=== PATIENT | female | born 1985 | race Caucasian/White ===

== ENCOUNTER 2016-12-05 17:51 | Inpatient (IN) | payer MEDICARE, MEDICAID ==
[2016-12-05 18:50] LABS: BASO % 0.4 % (0.0-2.0); EOS # 0.2 K/uL (0.0-0.7); EOS % 1.8 % (0.0-4.0); HEMOGLOBIN 13.8 g/dL (12.0-16.0); LYMPH # 2.6 K/uL (1.0-4.3); LYMPH % 25.5 % (20.0-40.0); MEAN CELL VOLUME 93.9 fl (81.0-99.0); MEAN CORPUSCULAR HEMOGLOBIN 31.2 pg (27.0-31.0); MEAN CORPUSCULAR HGB CONC 33.2 g/dL (33.0-37.0); MEAN PLATELET VOLUME 10.1 fl (7.2-11.7); MONO # 0.5 K/uL (0.0-0.8); MONO % 4.9 % (0.0-10.0); NEUT # 6.8 K/uL (1.8-7.0); NEUT % 67.4 % (50.0-75.0); RBC 4.41 Mil/uL (3.80-5.20); RED CELL DISTRIBUTION WIDTH 13.3 % (11.5-14.5); WHITE BLOOD COUNT 10.1 K/uL (4.8-10.8)
[2016-12-05 19:05] LABS: ALB/GLOB RATIO 1.2 (1.0-2.1); ALBUMIN 4.2 g/dL (3.5-5.0); ALT/SGPT 31 U/L (9-52); AST/SGOT 18 U/L (14-36); BLOOD UREA NITROGEN 14 mg/dl (7-17); CALCIUM 9.6 mg/dL (8.4-10.2); GFR AFRICAN-AMERICAN > 60; GFR NON-AFRICAN AMERICAN > 60
--- NOTE | 2016-12-05 19:43 | ED PDOC ---
HPI: Chest Pain Time Seen by Provider: 12/05/16 18:08 Chief Complaint (Nursing): Chest Pain Chief Complaint (Provider): Chest Pain History Per: Patient History/Exam Limitations: no limitations Onset/Duration Of Symptoms: Hrs (x2) Current Symptoms Are (Timing): Still Present Additional Complaint(s): Gisselle Paz is a 31 year old female who presents to the emergency department with a complaint of intermittent central chest pain radiating to right shoulder without exasperation factor associated with mild dizziness and shortness of breath ongoing for 2 hours prior to arrival. Denied leg pain, leg edema, or prior incident. Patient reported she takes Percocet as needed for chronic pain management due to rheumatic conditions, on Plaquenil and that she cannot take aspirin due to Von Willebrand disease. Upon review of [place] directory of narcotics , patient last filled out Rx for Percocet on 11/04/16. PMD: Roberto Arguello MD Past Medical History Reviewed: Historical Data, Nursing Documentation, Vital Signs Vital Signs: Last Vital Signs Temp 98.0 F 12/06/16 12:47 Pulse 79 12/06/16 12:47 Resp 20 12/06/16 12:47 BP 100/59 L 12/06/16 12:47 Pulse Ox 96 12/06/16 12:47 - Medical History PMH: Anxiety, Arthritis, Asthma, Bronchitis, Depression, HTN, Migraine, Chronic Kidney Disease, Rheumatoid Arthritis, Seizures - Surgical History Surgical History: Cholecystectomy, Tonsillectomy - Family History Family History: States: Unknown Family Hx - Social History Current smoker - smoking cessation education provided: Yes Alcohol: Occasional Drugs: Denies - Immunization History Hx Tetanus Toxoid Vaccination: No - Home Medications Home Medications: Ambulatory Orders Medication Instructions Recorded Ondansetron [Zofran Tab] 4 mg PO Q8H PRN #10 tab 12/09/13 Acetaminophen/Oxycodone Hydr 5 mg PO PRN PRN 12/11/13 [Percocet 500 mg-7.5 mg] Pantoprazole [Protonix EC Tab] 40 mg PO BID 12/11/13 clonazePAM [Klonopin] 1 mg PO BID 12/11/13 Hydroxychloroquine Sulfate 200 mg PO BID 12/26/13 [Plaquenil] Albuterol HFA [Ventolin HFA 90 1 puff IH BID PRN #1 unit 02/26/14 mcg/actuation (8 g)] Acetaminophen/Butalbital/Caf 1 tab PO Q6 PRN 01/30/15 [Fioricet] Levetiracetam [Keppra] 500 mg PO BID 01/30/15 Zolpidem Tartrate [Ambien] 10 mg PO HS PRN 01/30/15 Carisoprodol [Soma] 250 mg PO TIDPC #14 tablet 06/18/15 - Allergies Allergies/Adverse Reactions: Allergies Allergy/AdvReac Type Severity Reaction Status Date / Time azithromycin [From Zithromax] Allergy Verified 06/17/15 19:28 ceftriaxone sodium Allergy Verified 06/17/15 19:28 [From Rocephin] ciprofloxacin [From Cipro] Allergy Verified 06/17/15 19:28 ciprofloxacin HCl Allergy Verified 06/17/15 19:28 [From Cipro] clarithromycin [From Biaxin] Allergy Verified 06/17/15 19:28 doxycycline Allergy Verified 06/17/15 19:28 ibuprofen Allergy Verified 06/17/15 19:28 levofloxacin [From Levaquin] Allergy Verified 06/17/15 19:28 morphine Allergy Verified 06/17/15 19:28 moxifloxacin HCl Allergy Verified 06/17/15 19:28 [From Avelox] Penicillins Allergy Verified 06/17/15 19:28 Sulfa (Sulfonamide Allergy Verified 06/17/15 19:28 Antibiotics) Review of Systems ROS Statement: Except As Marked, All Systems Reviewed And Found Negative Cardiovascular: Positive for: Chest Pain (central region) Respiratory: Positive for: Shortness of Breath Musculoskeletal: Positive for: Shoulder Pain (right without exacerbation factor) . Negative for: Leg Pain, Other (leg edema) Neurological: Positive for: Dizziness (mild) Physical Exam - Reviewed Nursing Documentation Reviewed: Yes Vital Signs Reviewed: Yes - Physical Exam Appears: Positive for: Well, Non-toxic, No Acute Distress Head Exam: Positive for: ATRAUMATIC, NORMAL INSPECTION, NORMOCEPHALIC Skin: Positive for: Normal Color Cardiovascular/Chest: Positive for: Regular Rate, Rhythm. Negative for: Chest Non Tender Respiratory: Positive for: Normal Breath Sounds. Negative for: Crackles, Rales , Rhonchi, Wheezing Extremity: Positive for: Normal ROM, Tenderness (mild to multiple joints). 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 -- Cardiac workup initiated due to patient's risk factors and autoimmune history. Time: 1899 --Patient signed out to Dr. Bonifacio Hogan. Pending bloodwork and Xray results. Scribe Attestation: Documented by Lexi Veliz, acting as a scribe for Mark Anthony Su III, DO. Provider Scribe Attestation: All medical record entries made by the Scribe were at my direction and personally dictated by me. I have reviewed the chart and agree that the record accurately reflects my personal performance of the history, physical exam, medical decision making, and the department course for this patient. I have also personally directed, reviewed, and agree with the discharge instructions and disposition. Disposition - Clinical Impression Clinical Impression: Chest pain - Patient ED Disposition Is Patient to be Admitted: Transfer of Care - Disposition Disposition: Transfer of Care Disposition Time: 19:00 Condition: FAIR Patient Signed Over To: Bonifacio Hogan
[2016-12-05 19:45] LABS: PARTIAL THROMBOPLASTIN TIME 36.2 Seconds (25.6-37.1); PROTHROMBIN TIME 10.4 Seconds (9.8-13.1)
--- NOTE | 2016-12-05 20:37 | ED PDOC ---
- Laboratory Results Result Diagrams: 12/05/16 18:44 12/05/16 18:44 - ECG O2 Sat by Pulse Oximetry: 97 (RA) Pulse Ox Interpretation: Normal Medical Decision Making Medical Decision Making: Time: 1899 --Patient was signed out to provider by Dr. Mark Anthony Su III. Pending bloodwork and Xray results. Time: 2214 --CTA FINDINGS: Limitations: Streak artifact - mild. Suboptimal timing of bolus/contrast opacification. Pulmonary arteries: No definite pulmonary embolism. Aorta: No aneurysm. No dissection. Lungs: No consolidation. Pleural space: No significant effusion. No pneumothorax. Heart: No cardiomegaly. No significant pericardial effusion. Bones/joints: No acute fracture. No dislocation. Soft tissues: Unremarkable. Lymph nodes: No pathologically enlarged lymph nodes. Gallbladder and bile ducts: Cholecystectomy. IMPRESSION: 1. No definite CT evidence of pulmonary embolism. 2. Incidental/non-acute findings are described above. Time: 2219 --Upon provider reevaluation, patient is still in pain. --Discussed case dr Alves (covering dr osei) who accepted patient be admitted under his care. pt cant get ASA because of von willebrands. Clinical Impression: Chest Pain Scribe Attestation: Documented by Lexi Veliz, acting as a scribe for Bonifacio Hogan MD. Provider Scribe Attestation: All medical record entries made by the Scribe were at my direction and personally dictated by me. I have reviewed the chart and agree that the record accurately reflects my personal performance of the history, physical exam, medical decision making, and the department course for this patient. I have also personally directed, reviewed, and agree with the discharge instructions and disposition. Disposition Doctor Will See Patient In The: Hospital Counseled Patient/Family Regarding: Studies Performed, Diagnosis - Clinical Impression Clinical Impression: Chest pain - POA Present On Arrival: None - Disposition Disposition: Admitted as In-Patient Disposition Time: 22:00 Condition: FAIR
[2016-12-05] MEDS ORDERED: Iodixanol 320 MG/ML 100 ML BOTTLE IV ONE (20:50)
[2016-12-05] MEDS ORDERED: Sodium Chloride 0.9% 50 ML IV ONE (20:51)
--- NOTE | 2016-12-05 22:15 | CT ---
EXAM: CT Angiography Chest With Intravenous Contrast CLINICAL HISTORY: 31 years old, female; Pain; Chest pain; Type not specified; Patient HX: See physician documents; Additional info: RO pe TECHNIQUE: Axial computed tomographic angiography images of the chest with intravenous contrast using pulmonary embolism protocol. All CT scans at this facility use one or more dose reduction techniques, viz.: automated exposure control; ma/kV adjustment per patient size (including targeted exams where dose is matched to indication; i.e. head); or iterative reconstruction technique. MIP reconstructed images were created and reviewed. Coronal and sagittal reformatted images were created and reviewed. CONTRAST: 90 mL of VISI 320 administered intravenously. COMPARISON: CT CHEST W/O IV CONT 07/05/2011 10:34:52 AM FINDINGS: Limitations: Streak artifact - mild. Suboptimal timing of bolus/contrast opacification. Pulmonary arteries: No definite pulmonary embolism. Aorta: No aneurysm. No dissection. Lungs: No consolidation. Pleural space: No significant effusion. No pneumothorax. Heart: No cardiomegaly. No significant pericardial effusion. Bones/joints: No acute fracture. No dislocation. Soft tissues: Unremarkable. Lymph nodes: No pathologically enlarged lymph nodes. Gallbladder and bile ducts: Cholecystectomy. IMPRESSION: 1. No definite CT evidence of pulmonary embolism. 2. Incidental/non-acute findings are described above.
[2016-12-05] MEDS ORDERED: Morphine 4 MG/ML VIAL ONE (22:33)
[2016-12-06] MEDS ORDERED: ACETAMINOPHEN PO PRN (00:17)
[2016-12-06] MEDS ORDERED: Albuterol HFA 90 mcg/actuation (8 g) IH PRN (00:17)
[2016-12-06] MEDS ORDERED: Apap-Butalbital-Caffeine 325-50-40mg Tab PO PRN (00:17)
[2016-12-06] MEDS ORDERED: OXYCODONE PO PRN (00:17)
[2016-12-06] MEDS ORDERED: LEVETIRACETAM 500 MG PO SCH (00:30)
[2016-12-06] MEDS: Oxycodone/Acetaminophen 5/325 mg Tab PO PRN ×3 (05:36→21:00)
[2016-12-06] MEDS: Pantoprazole 40 mg EC Tab PO SCH ×2 (08:24→17:25)
[2016-12-06] MEDS ORDERED: CARISOPRODOL 250 MG PO SCH (08:30)
[2016-12-06] MEDS ORDERED: Albuterol-Ipratrop 3 mg / 0.5 (3 ml) UD INH STA (08:52)
--- NOTE | 2016-12-06 10:32 | CARD ---
APPROVED REPORT EKG Measurement Heart [id number] <Conclusion> Normal sinus rhythm Normal ECG
--- NOTE | 2016-12-06 10:35 | RAD ---
HISTORY: COMPARISON: 01/30/2015. TECHNIQUE: Chest PA and lateral FINDINGS: LINES AND TUBES: None. LUNG AND PLEURA: The lungs are well inflated and clear. There are no pleural effusions or pneumothorax. HEART AND MEDIASTINUM: The heart is not enlarged. The hilar and mediastinal contours are within normal limits. SKELETAL STRUCTURES: The bony structures are within normal limits for the patient's age. VISUALIZED UPPER ABDOMEN: Normal. OTHER FINDINGS: None. IMPRESSION: No active pulmonary disease.
--- NOTE | 2016-12-06 13:20 | CP.PCM.HP ---
History of Present Illness - History of Present Illness History of Present Illness: 31 y/o F with PMHx that includes Asthma, RA, Migraine headaches, presents yesterday to ED c/o intermittent chest pain radiating to her right shoulder. Also patient states she has an epigastric pain associated with nausea and vomiting since yesterday. Denies SOB, palpitations, diarrheas, constipation, urinary symptoms. patient seen and examined with attending this morning. Patient still c/o chest pain radiating to her right shoulder, and also c/w epigastric pain associated to nausea, and reports approximately 3 vomits today. Present on Admission - Present on Admission Any Indicators Present on Admission: No History of DVT/PE: No History of Uncontrolled Diabetes: No Urinary Catheter: No Decubitus Ulcer Present: No Review of Systems - Review of Systems All systems: reviewed and no additional remarkable complaints except (as per HPI ) Past Patient History - Past Medical History & Family History Past Medical History?: Yes - Past Social History Smoking Status: Light Smoker < 10 Cigarettes Daily - CARDIAC Hx Cardiac Disorders: Yes Hx Hypertension: Yes - PULMONARY Hx Respiratory Disorders: Yes Hx Asthma: Yes Hx Bronchitis: Yes - NEUROLOGICAL Hx Neurological Disorder: Yes Hx Migraine: Yes Hx Seizures: Yes - HEENT Hx HEENT Problems: No - RENAL Hx Chronic Kidney Disease: Yes Other/Comment: CKD - ENDOCRINE/METABOLIC Hx Endocrine Disorders: Yes Hx Systemic Lupus Erythematosus: Yes - HEMATOLOGICAL/ONCOLOGICAL Hx Blood Disorders: Yes Hx AIDS: No Hx Human Immunodeficiency Virus (HIV): No Hx von Willebrand's Disease: Yes - INTEGUMENTARY Hx Dermatological Problems: No - MUSCULOSKELETAL/RHEUMATOLOGICAL Hx Musculoskeletal Disorders: Yes Hx Arthritis: Yes Hx Falls: No Hx Rheumatoid Arthritis: Yes - GASTROINTESTINAL Hx Gastrointestinal Disorders: Yes Hx Gastroesophageal Reflux: Yes Hx Irritable Bowel: Yes - GENITOURINARY/GYNECOLOGICAL Hx Genitourinary Disorders: Yes Hx Urinary Tract Infection: Yes Other/Comment: Hx : Nephrotic Syndrome - PSYCHIATRIC Hx Psychophysiologic Disorder: Yes Hx Anxiety: Yes Hx Depression: Yes Hx Substance Use: No - SURGICAL HISTORY Hx Surgeries: Yes Hx Cholecystectomy: Yes Hx Tonsillectomy: Yes - ANESTHESIA Hx Anesthesia: Yes Hx Anesthesia Reactions: No Hx Malignant Hyperthermia: No Meds Allergies/Adverse Reactions: Allergies Allergy/AdvReac Type Severity Reaction Status Date / Time azithromycin [From Zithromax] Allergy Verified 06/17/15 19:28 ceftriaxone sodium Allergy Verified 06/17/15 19:28 [From Rocephin] ciprofloxacin [From Cipro] Allergy Verified 06/17/15 19:28 ciprofloxacin HCl Allergy Verified 06/17/15 19:28 [From Cipro] clarithromycin [From Biaxin] Allergy Verified 06/17/15 19:28 doxycycline Allergy Verified 06/17/15 19:28 ibuprofen Allergy Verified 06/17/15 19:28 levofloxacin [From Levaquin] Allergy Verified 06/17/15 19:28 morphine Allergy Verified 06/17/15 19:28 moxifloxacin HCl Allergy Verified 06/17/15 19:28 [From Avelox] Penicillins Allergy Verified 06/17/15 19:28 Sulfa (Sulfonamide Allergy Verified 06/17/15 19:28 Antibiotics) Physical Exam - Constitutional Appears: No Acute Distress - ENT Exam ENT Exam: Mucous Membranes Moist - Respiratory Exam Respiratory Exam: Wheezes, NORMAL BREATHING PATTERN. absent: Rales, Rhonchi, Respiratory Distress - Cardiovascular Exam Cardiovascular Exam: REGULAR RHYTHM, +S1, +S2 - GI/Abdominal Exam GI & Abdominal Exam: Normal Bowel Sounds, Soft, Tenderness - Extremities Exam Extremities exam: Positive for: normal inspection. Negative for: calf tenderness, pedal edema - Neurological Exam Neurological exam: Alert, Oriented x3 - Skin Skin Exam: Dry, Intact, Normal Color Results - Vital Signs Recent Vital Signs: Last Vital Signs Temp 98.0 F 12/06/16 12:47 Pulse 79 12/06/16 12:47 Resp 20 12/06/16 12:47 BP 100/59 L 12/06/16 12:47 Pulse Ox 96 12/06/16 12:47 - Labs Result Diagrams: 12/05/16 18:44 12/05/16 18:44 Assessment & Plan - Assessment and Plan (Free Text) Assessment: 31 y/o F admitted in telemetry with chest and abdominal pain. Plan: Chest pain admit to tele first troponin I neg, f/u Troponin x 2 c/w pain control EKG showed no acute ST-T wave changes CXR showed no active disease Chest CT showed no evidence of PE Abdominal pain, nausea, and vomiting could be 2/2 percocet side effects; as per patient she has chronic pain for which she takes percocet at home -f/u Lipase -c/w zofran PRN -c/w PPI BID -f/u KUB x ray -GI consulted, f/u recommendations h/o Asthma -wheezing -Duoneb stat once then re-evaluate -c/w home albuterol PRN DVT prophylaxis SCDs for now ambulating - Date & Time Date: 12/06/16 Time: 09:30
[2016-12-06 13:49] LABS: LIPASE 36 U/L (23-300)
--- NOTE | 2016-12-06 14:35 | RAD ---
HISTORY: abdominal pain, N/V COMPARISON: 05/19/2013 FINDINGS: BOWEL: There is moderate amount of stool in the ascending colon. The bowel gas pattern is nonobstructive. There is no evidence of bowel dilatation. BONES: Normal. OTHER FINDINGS: None. IMPRESSION: Nonobstructive bowel-gas pattern.
[2016-12-06 20:15] VITALS: TEMP 98.2
[2016-12-07 00:17] VITALS: BP 123/73; PULSE 80; RESP 20; O2SAT 95
[2016-12-07] MEDS: Oxycodone/Acetaminophen 5/325 mg Tab PO SCH ×2 (00:33→01:00)
== END 2016-12-07 02:50 | disposition left against medical advice (07) | DRG 313 ==
LOC: H.ER 17:51 → H.ERHOLD 21:24 → H.TEL 12-06 00:12 → OBSVTOIN 12-06 11:24
PROVIDERS: ADMIT Family Medicine; ATTEND Family Medicine
DX: R07.9 Chest pain, unspecified (principal); D68.0 Von Willebrand disease; M32.9 Systemic lupus erythematosus, unspecified; I12.9 Hypertensive chronic kidney disease with stage 1 through stage 4 chronic kidney disease, or unspecified chronic kidney disease; N18.9 Chronic kidney disease, unspecified; K21.9 Gastro-esophageal reflux disease without esophagitis; G89.29 Other chronic pain; R10.9 Unspecified abdominal pain; K58.9 Irritable bowel syndrome, unspecified; M06.9 Rheumatoid arthritis, unspecified; J45.909 Unspecified asthma, uncomplicated; G43.909 Migraine, unspecified, not intractable, without status migrainosus; F17.210 Nicotine dependence, cigarettes, uncomplicated; Z88.1 Allergy status to other antibiotic agents; Z87.440 Personal history of urinary (tract) infections; Z87.441 Personal history of nephrotic syndrome; Z90.49 Acquired absence of other specified parts of digestive tract

== ENCOUNTER 2017-09-06 20:11 | Emergency (ER) | payer MEDICARE, MEDICAID ==
[2017-09-06 20:42] VITALS: BP 133/80; PULSE 98; RESP 16; TEMP 98; O2SAT 100
--- NOTE | 2017-09-06 21:08 | ED PDOC ---
HPI: General Adult Time Seen by Provider: 09/06/17 20:52 Chief Complaint (Nursing): Medical Clearance Chief Complaint (Provider): Repeat blood work History Per: Patient History/Exam Limitations: no limitations Additional Complaint(s): 32 year old female presents to the emergency department for repeat blood work for BETA-HCG after she was seen here two days ago. Patient found out that morning she was with an at home test associated with abdominal pain and spotting. Symptoms resolved. Denies nausea. vomiting, abdominal pain, vaginal bleeding, or fever. Patients only care was here at this facility as she just found out she was . Last menstrual: July 26 2017. PMD: Dr. Jos OAKES Past Medical History Reviewed: Historical Data, Nursing Documentation, Vital Signs Vital Signs: Last Vital Signs Temp 98 F 09/06/17 20:40 Pulse 98 H 09/06/17 20:40 Resp 16 09/06/17 20:40 BP 133/80 09/06/17 20:40 Pulse Ox 100 09/06/17 22:31 - Medical History PMH: Anxiety, Arthritis, Asthma, Bronchitis, HTN, Migraine, Chronic Kidney Disease, Rheumatoid Arthritis, Seizures Denies: Depression, HIV Other PMH: Lupus idiopathic thrombocytopenic purpura (ITP) nephrotic syndrome, GBS - Surgical History Surgical History: Cholecystectomy, Tonsillectomy Other surgeries: Fatty tumor removal of the neck (benign) - Family History Family History: States: Unknown Family Hx - Social History Current smoker - smoking cessation education provided: Yes (3-4 cigarettes daily ) Alcohol: Social Drugs: Denies - Immunization History Hx Tetanus Toxoid Vaccination: No - Home Medications Home Medications: Ambulatory Orders Medication Instructions Recorded Ondansetron [Zofran Tab] 4 mg PO Q8H PRN #10 tab 12/09/13 Acetaminophen/Oxycodone Hydr 5 mg PO PRN PRN 12/11/13 [Percocet 500 mg-7.5 mg] Pantoprazole [Protonix EC Tab] 40 mg PO BID 12/11/13 clonazePAM [Klonopin] 1 mg PO BID 12/11/13 Hydroxychloroquine Sulfate 200 mg PO BID 12/26/13 [Plaquenil] Albuterol HFA [Ventolin HFA 90 1 puff IH BID PRN #1 unit 02/26/14 mcg/actuation (8 g)] Acetaminophen/Butalbital/Caf 1 tab PO Q6 PRN 01/30/15 [Fioricet] Levetiracetam [Keppra] 500 mg PO BID 01/30/15 Zolpidem Tartrate [Ambien] 10 mg PO HS PRN 01/30/15 Carisoprodol [Soma] 250 mg PO TIDPC #14 tablet 06/18/15 Ondansetron ODT [Zofran ODT] 4 mg PO Q6 PRN #12 tab 09/06/17 - Allergies Allergies/Adverse Reactions: Allergies Allergy/AdvReac Type Severity Reaction Status Date / Time azithromycin [From Zithromax] Allergy Verified 06/17/15 19:28 ceftriaxone sodium Allergy Verified 06/17/15 19:28 [From Rocephin] ciprofloxacin [From Cipro] Allergy Verified 06/17/15 19:28 ciprofloxacin HCl Allergy Verified 06/17/15 19:28 [From Cipro] clarithromycin [From Biaxin] Allergy Verified 06/17/15 19:28 doxycycline Allergy Verified 06/17/15 19:28 ibuprofen Allergy Verified 06/17/15 19:28 levofloxacin [From Levaquin] Allergy Verified 06/17/15 19:28 morphine Allergy Verified 06/17/15 19:28 moxifloxacin HCl Allergy Verified 06/17/15 19:28 [From Avelox] Penicillins Allergy Verified 06/17/15 19:28 Sulfa (Sulfonamide Allergy Verified 06/17/15 19:28 Antibiotics) Review of Systems ROS Statement: Except As Marked, All Systems Reviewed And Found Negative (As per HPI, otherwise negative) Constitutional: Positive for: Other (repeat bloo work). Negative for: Fever Gastrointestinal: Negative for: Nausea, Vomiting, Abdominal Pain Genitourinary Female: Negative for: Vaginal Bleeding Physical Exam - Reviewed Nursing Documentation Reviewed: Yes Vital Signs Reviewed: Yes - Physical Exam Comments: GENERAL APPEARANCE: Patient is awake, alert, oriented x 3, in no distress. Resting comfortably. SKIN: Warm, dry; (-) cyanosis. EYES: (-) conjunctival pallor, (-) scleral icterus. ENMT: Mucous membranes [ ] moist. NECK: (-) tenderness, (-) stiffness, (-) lymphadenopathy. CHEST AND RESPIRATORY: (+) breath sounds equal bilaterally. (-) rales, (-) rhonchi, (-) wheeze HEART AND CARDIOVASCULAR: Regular rate and rhythm. (-) irregularity; (-) murmur , (-) gallop. ABDOMEN AND GI: (+) Soft [-] tenderness(-) guarding, (-) rebound, (-) palpable masses, (-) CVA tenderness. EXTREMITIES: (-) deformity, (-) edema, (+) distal pulses. NEURO AND PSYCH: Mental status as above; (-) focal findings. - ECG O2 Sat by Pulse Oximetry: 100 (RA) Pulse Ox Interpretation: Normal Medical Decision Making Medical Decision Making: Time: 2054 Initial impression: Visit for blood test; first trimester Initial plan: --Beta-HCG, quantitative --Reevaluation 2229 Beta Quant Today: 4346.5 Beta Quant on visit 09/04/17: 2086.8 Patient reports she has an upcoming OB appt on 09/12/17. Patient is requesting Rx for Zofran at this time. On exam, patient remains AAOx3, in no acute distress. On exam, neck is supple, lungs CTA, cardiac RRR, abdomen is soft and non-tender, neuro exam shows no focal findings. Diagnostic results d/w the patient in great detail. Dx of first trimester , nausea, visit for blood test d/w the patient. Patient advised to continue vitamins. Based on history, exam and diagnostic results plan will be for discharge and outpatient OB follow up. Advised to follow up with primary care physician in 1-2 days without fail. Advised to take medication as prescribed. Return to the emergency room at any time for any new or worsening symptoms. Patient states she fully agrees with and understands discharge instructions. States that she agrees with the plan and disposition. Verbalized and repeated discharge instructions and plan. I have given the patient opportunity to ask any additional questions. Scribe Attestation: Documented by Dorinda Smith, acting as a scribe for Chasity Leonard PA-C. Provider Scribe Attestation: All medical record entries made by the Scribe were at my direction and personally dictated by me. I have reviewed the chart and agree that the record accurately reflects my personal performance of the history, physical exam, medical decision making, and the department course for this patient. I have also personally directed, reviewed, and agree with the discharge instructions and disposition. Disposition - Clinical Impression Clinical Impression: First trimester , Visit for blood test, Nausea alone - Patient ED Disposition Is Patient to be Admitted: No Counseled Patient/Family Regarding: Studies Performed, Diagnosis, Need For Followup, Rx Given - Disposition Disposition: Routine/Home Disposition Time: 22:38 Condition: STABLE Additional Instructions: FOLLOW UP WITH OB PLANNED ON 09/12/17. RETURN TO ED WITH ANY NEW OR WORSENING SYMPTOMS. Prescriptions: Ondansetron ODT [Zofran ODT] 4 mg PO Q6 PRN #12 tab PRN Reason: Nausea/Vomiting Instructions: - The First Month, - The Second Month, - The Third Month, - The Fourth Month, Care Forms: [employer] (Danish) Print Language: DJIBOUTIAN - POA Present On Arrival: None Results - Lab Results Lab Results: 09/06/17 21:42 Beta HCG, Quant 4346.50
== END 2017-09-06 23:20 | disposition home or self-care (01) ==
LOC: H.ER 20:11
DX: Z33.1 Pregnant state, incidental (principal)

== ENCOUNTER 2018-06-15 20:40 | Emergency (ER) | payer MEDICARE, MEDICAID ==
[2018-06-15 20:52] VITALS: BP 140/78; PULSE 102; RESP 18; TEMP 98.9; O2SAT 97
[2018-06-15 21:39] LABS: BLOOD UREA NITROGEN 18 mg/dl (7-17); CALCIUM 9.2 mg/dL (8.4-10.2); GFR NON-AFRICAN AMERICAN > 60
--- NOTE | 2018-06-15 21:40 | ED PDOC ---
Lower Extremity Pain/Injury Time Seen by Provider: 06/15/18 20:57 Chief Complaint (Nursing): Lower Extremity Problem/Injury Chief Complaint (Provider): Lower Extremity Problem/Injury History Per: Patient History/Exam Limitations: no limitations Current Symptoms Are (Timing): Still Present Additional Complaint(s): Gisselle Paz is a 33 year old female with a past medical history of lupus, nephro tic syndrome, ITP and von willebrand disease, who presents to the emergency department complaining of acute right knee pain, onset x2 days. Patient states that she gave by x2 months ago and is concerned that she is having a lupus flare. She developed right knee pain x2 days ago with some swelling and has been taking Tylenol intermittently with some relief. Patient reports that pain is worse when walking. She denies any fever, chills, trauma or falls. Patient further states that she has been having bilateral wrist pain, all of which is similar to her lupus flare, which she has had in the past. She states that after giving she became acutely anemic and has continued to fe el weak. PMD: no provider Past Medical History Reviewed: Historical Data, Nursing Documentation, Vital Signs Vital Signs: Last Vital Signs Temp 98.9 F 06/15/18 20:49 Pulse 102 H 06/15/18 20:49 Resp 18 06/15/18 20:49 BP 140/78 06/15/18 20:49 Pulse Ox 97 06/15/18 20:49 - Medical History PMH: Anxiety, Arthritis, Asthma, Bronchitis, HTN, Migraine, Chronic Kidney Disease, Rheumatoid Arthritis, Seizures Denies: Depression, HIV Other PMH: von willebrand disease; ITP; luspus; nephrotic syndrome - Surgical History Surgical History: Cholecystectomy, Tonsillectomy, - Family History Family History: States: Unknown Family Hx - Immunization History Hx Tetanus Toxoid Vaccination: No - Home Medications Home Medications: Ambulatory Orders Medication Instructions Recorded Ondansetron [Zofran Tab] 4 mg PO Q8H PRN #10 tab 12/09/13 Acetaminophen/Oxycodone Hydr 5 mg PO PRN PRN 12/11/13 [Percocet 500 mg-7.5 mg] Pantoprazole [Protonix EC Tab] 40 mg PO BID 12/11/13 clonazePAM [Klonopin] 1 mg PO BID 08/20/14 Hydroxychloroquine Sulfate 200 mg PO BID 12/26/13 [Plaquenil] Albuterol HFA [Ventolin HFA 90 1 puff IH BID PRN #1 unit 02/26/14 mcg/actuation (8 g)] Acetaminophen/Butalbital/Caf 1 tab PO Q6 PRN 01/30/15 [Fioricet] Levetiracetam [Keppra] 500 mg PO BID 01/30/15 Zolpidem Tartrate [Ambien] 10 mg PO HS PRN 01/30/15 Carisoprodol [Soma] 250 mg PO TIDPC #14 tablet 06/18/15 Ondansetron ODT [Zofran ODT] 4 mg PO Q6 PRN #12 tab 09/06/17 - Allergies Allergies/Adverse Reactions: Allergies Allergy/AdvReac Type Severity Reaction Status Date / Time azithromycin [From Zithromax] Allergy Verified 06/17/15 19:28 ceftriaxone sodium Allergy Verified 06/17/15 19:28 [From Rocephin] ciprofloxacin [From Cipro] Allergy Verified 06/17/15 19:28 ciprofloxacin HCl Allergy Verified 06/17/15 19:28 [From Cipro] clarithromycin [From Biaxin] Allergy Verified 06/17/15 19:28 doxycycline Allergy Verified 06/17/15 19:28 ibuprofen Allergy Verified 06/17/15 19:28 levofloxacin [From Levaquin] Allergy Verified 06/17/15 19:28 morphine Allergy Verified 06/17/15 19:28 moxifloxacin HCl Allergy Verified 06/17/15 19:28 [From Avelox] Penicillins Allergy Verified 06/17/15 19:28 Sulfa (Sulfonamide Allergy Verified 06/17/15 19:28 Antibiotics) Review of Systems ROS Statement: Except As Marked, All Systems Reviewed And Found Negative Constitutional: Positive for: Weakness. Negative for: Fever, Chills Musculoskeletal: Positive for: Hand Pain (bilateral wrist pain), Other (right knee pain and swelling) Physical Exam - Reviewed Nursing Documentation Reviewed: Yes Vital Signs Reviewed: Yes - Physical Exam Appears: Positive for: Non-toxic, No Acute Distress Head Exam: Positive for: ATRAUMATIC, NORMOCEPHALIC Skin: Positive for: Normal Color, Warm, Dry Pulses-Dorsalis Pedis (L): 2+ Pulses-Dorsalis Pedis (R): 2+ Extremity: Positive for: Normal ROM (with flexion and extension at the wrists/ decreased ROM with extention at right knee; normal flexion of right knee; normal flexion and extension of bilateral ankles), Tenderness (Mild tenderness to palpation of medial and lateral aspect of knee; (-) ttp on patella ), Other (bilateral wirst: minimal edema (-) erythema, ecchymosis/ Right knee: (-) edema, ecchymosis). Negative for: Deformity - Laboratory Results Result Diagrams: 06/15/18 21:27 06/15/18 21:27 - ECG O2 Sat by Pulse Oximetry: 97 (RA) Pulse Ox Interpretation: Normal Medical Decision Making Medical Decision Making: Time: 2105 Plan: --CBC with differential --BMP --ED urine --Right knee x-ray 3 views Right knee x-ray reviewed by me: no acute pathology noted. Labs Wnl. Patient informed of results and advised to f/u with Therapeutic Recreation Leader as soon as possbile. Pt demonstrated understanding and will f/u with Therapeutic Recreation Leader in [facility]. ------ Scribe Attestation: Documented by Kumar Rosario, acting as a scribe for Melissa Ramos PA-C. Provider Scribe Attestation: All medical record entries made by the Scribe were at my direction and p ersonally dictated by me. I have reviewed the chart and agree that the record accurately reflects my personal performance of the history, physical exam, medical decision making, and the department course for this patient. I have also personally directed, reviewed, and agree with the discharge instructions and disposition. Disposition - Clinical Impression Clinical Impression: Knee pain, acute - Patient ED Disposition Is Patient to be Admitted: No Counseled Patient/Family Regarding: Studies Performed, Diagnosis, Need For Followup - Disposition Referrals: Eliecer Garza MD [Staff Provider] - Disposition: Routine/Home Disposition Time: 22:10 Condition: STABLE Additional Instructions: Take Tylenol for pain. F/u with Therapeutic Recreation Leader for possible Lupus flare. Use ESPERANZA bandage for comfort. Instructions: Knee Pain (DC) Forms: [facility] (Kiswahili) Print Language: PASHTO
[2018-06-15 21:49] LABS: BASO # 0.1 K/uL (0.0-0.2); BASO % 0.5 % (0.0-2.0); EOS # 0.6 K/uL (0.0-0.7); EOS % 5.4 % (0.0-4.0); HEMOGLOBIN 12.1 g/dL (12.0-16.0); LYMPH % 19.3 % (20.0-40.0); MEAN CORPUSCULAR HGB CONC 31.8 g/dL (33.0-37.0); MEAN PLATELET VOLUME 10.5 fl (7.2-11.7); MONO # 0.7 K/uL (0.0-0.8); MONO % 6.4 % (0.0-10.0); NEUT # 7.1 K/uL (1.8-7.0); NEUT % 68.4 % (50.0-75.0); RBC 4.31 Mil/uL (3.80-5.20); RED CELL DISTRIBUTION WIDTH 14.8 % (11.5-14.5); WHITE BLOOD COUNT 10.3 K/uL (4.8-10.8)
--- NOTE | 2018-06-16 12:15 | RAD ---
Date of service: 06/15/2018 PROCEDURE: Right Knee Radiographs. HISTORY: acute R knee pain x 2 days COMPARISON: None. FINDINGS: BONES: Normal. No fracture. JOINTS: Normal. No osteoarthritis. JOINT EFFUSION: None. OTHER FINDINGS: None. IMPRESSION: Normal radiographs of the right knee. Concordant results with the preliminary interpretation rendered by the emergency department physician procedure.
== END 2018-06-15 22:21 | disposition home or self-care (01) ==
LOC: H.ER 20:40
DX: M25.561 Pain in right knee (principal); D68.0 Von Willebrand disease

== ENCOUNTER 2018-08-02 18:37 | Emergency (ER) | payer MEDICARE, MEDICAID ==
[2018-08-02 19:41] VITALS: BP 141/92; PULSE 86; RESP 18; TEMP 98.8; O2SAT 99
--- NOTE | 2018-08-02 21:08 | ED PDOC ---
HPI: Back Time Seen by Provider: 08/02/18 21:05 Chief Complaint (Nursing): Back Pain Chief Complaint (Provider): Back Pain History Per: Patient History/Exam Limitations: no limitations Onset/Duration Of Symptoms: Days (X3) Current Symptoms Are (Timing): Still Present Additional Complaint(s): 33 year old female with a past medial history of Lupus presents to the ED with upper back pain radiating to shoulder blades, shoulder and neck onset X3. Patient reports that she has pain and swelling to the joints in her hands. Patient believes this is a lupus flare up. Patient has taken tyenol with minimal relief, her last dose was X7 hours ago. Patient denies fever, nausea, vomiting, shortness of breath, coughing and any other injury. PMD: Roberto Arguello MD Past Medical History Reviewed: Historical Data, Nursing Documentation, Vital Signs Vital Signs: Last Vital Signs Temp 98.8 F 08/02/18 19:38 Pulse 86 08/02/18 19:38 Resp 18 08/02/18 19:38 BP 141/92 H 08/02/18 19:38 Pulse Ox 99 08/02/18 19:38 LUIS ALFREDO Report Viewed: Yes - Medical History PMH: Anxiety, Arthritis, Asthma, Bronchitis, HTN, Migraine, Chronic Kidney Disease, Rheumatoid Arthritis, Seizures Denies: Depression, HIV Other PMH: Lupus - Surgical History Surgical History: Cholecystectomy, Tonsillectomy, - Family History Family History: States: No Known Family Hx - Social History Current smoker - smoking cessation education provided: Yes (light) Alcohol: None Drugs: Denies - Immunization History Hx Tetanus Toxoid Vaccination: No - Home Medications Home Medications: Ambulatory Orders Medication Instructions Recorded Ondansetron [Zofran Tab] 4 mg PO Q8H PRN #10 tab 12/09/13 Acetaminophen/Oxycodone Hydr 5 mg PO PRN PRN 12/11/13 [Percocet 500 mg-7.5 mg] Pantoprazole [Protonix EC Tab] 40 mg PO BID 12/11/13 clonazePAM [Klonopin] 1 mg PO BID 12/11/13 Hydroxychloroquine Sulfate 200 mg PO BID 12/26/13 [Plaquenil] Albuterol HFA [Ventolin HFA 90 1 puff IH BID PRN #1 unit 11/05/14 mcg/actuation (8 g)] Acetaminophen/Butalbital/Caf 1 tab PO Q6 PRN 01/30/15 [Fioricet] Levetiracetam [Keppra] 500 mg PO BID 01/30/15 Zolpidem Tartrate [Ambien] 10 mg PO HS PRN 01/30/15 Carisoprodol [Soma] 250 mg PO TIDPC #14 tablet 06/18/15 Ondansetron ODT [Zofran ODT] 4 mg PO Q6 PRN #12 tab 09/06/17 Carisoprodol [Soma] 250 mg PO TID PRN #14 tablet 08/02/18 traMADol [Ultram] 50 mg PO Q6H PRN #15 tab 08/02/18 - Allergies Allergies/Adverse Reactions: Allergies Allergy/AdvReac Type Severity Reaction Status Date / Time azithromycin [From Zithromax] Allergy ANAPHYLAXIS Verified 08/02/18 19:42 ceftriaxone sodium Allergy ANAPHYLAXIS Verified 08/02/18 19:42 [From Rocephin] ciprofloxacin [From Cipro] Allergy RASH Verified 08/02/18 19:42 ciprofloxacin HCl Allergy RASH Verified 08/02/18 19:42 [From Cipro] clarithromycin [From Biaxin] Allergy RASH Verified 08/02/18 19:42 doxycycline Allergy RASH Verified 08/02/18 19:42 ibuprofen Allergy RASH Verified 08/02/18 19:42 levofloxacin [From Levaquin] Allergy RASH Verified 08/02/18 19:42 morphine Allergy RASH Verified 08/02/18 19:42 moxifloxacin HCl Allergy RASH Verified 08/02/18 19:42 [From Avelox] Penicillins Allergy RASH Verified 08/02/18 19:42 Sulfa (Sulfonamide Allergy ANAPHYLAXIS Verified 08/02/18 19:42 Antibiotics) Review of Systems ROS Statement: Except As Marked, All Systems Reviewed And Found Negative Constitutional: Negative for: Fever, Other (any other injuries) Respiratory: Negative for: Cough, Shortness of Breath Gastrointestinal: Negative for: Nausea, Vomiting Musculoskeletal: Positive for: Neck Pain, Shoulder Pain, Back Pain (upper), Hand Pain (swelling, and pain in joints for both hands) Physical Exam - Reviewed Nursing Documentation Reviewed: Yes Vital Signs Reviewed: Yes - Physical Exam Appears: Positive for: Well Head Exam: Positive for: ATRAUMATIC, NORMOCEPHALIC Skin: Positive for: Normal Color (intact), Warm, Dry. Negative for: Rash Eye Exam: Positive for: Normal appearance, EOMI, PERRL Cardiovascular/Chest: Positive for: Regular Rate, Rhythm. Negative for: Murmur Respiratory: Positive for: Normal Breath Sounds, Wheezing (slight expiratory wheezing to righ lung) Gastrointestinal/Abdominal: Positive for: Normal Exam, Soft. Negative for: Tenderness Extremity: Positive for: Normal ROM (upper and lower), Swelling (to Proximal Interphalangeal and Metacarpophalangeal in both hands). Negative for: Other (rashes, redness to hands ) Neurological/Psych: Positive for: Awake, Alert, Normal Tone. Negative for: Motor/Sensory Deficits - Laboratory Results Result Diagrams: 08/02/18 21:27 08/02/18 21:27 - ECG O2 Sat by Pulse Oximetry: 99 (RA) Pulse Ox Interpretation: Normal Medical Decision Making Medical Decision Making: Time: 20:24 Initial Impression: Back pain Plan: -Complete Metabolic Panel -U Preg -CBC with Differential -Urinalysis -re-evaluation 22:30: LABS REVIEWED BY ME. URINE POS FOR PROTEIN, PATIENT RE-EVALUATED REPORTS PAIN HAS SLIGHTLY IMPROVED. PATIENT STATES SHE FEELS SHE NEEDS A MUSCLE RE LAXANT. PATIENT HAS TAKEN "SOMA" IN THE PAST WITH RELIEF. RX GIVEN FOR SOMA. PATIENT WILL CALL LOCOMOTIVE OPERATOR TOMORROW TO SEE SOONER THAN SCHEDULED APPT. PATIENT VERBALIZES UNDERSTANDING AND AGREES WITH PLAN. Scribe Attestation: Documented by Clyde Silva, acting as a scribe for Rach Mccall APN. Provider Scribe Attestation: All medical record entries made by the Scribe were at my direction and personally dictated by me. I have reviewed the chart and agree that the record a ccurately reflects my personal performance of the history, physical exam, medical decision making, and the department course for this patient. I have also personally directed, reviewed, and agree with the discharge instructions and disposition. Disposition - Clinical Impression Clinical Impression: Back pain, Lupus (systemic lupus erythematosus) - Patient ED Disposition Is Patient to be Admitted: No Counseled Patient/Family Regarding: Diagnosis, Need For Followup, Rx Given - Disposition Referrals: Roberto Arguello MD [Primary Care Provider] - Disposition: Routine/Home Disposition Time: 22:30 Condition: STABLE Prescriptions: Carisoprodol [Soma] 250 mg PO TID PRN #14 tablet PRN Reason: Muscle Spasm traMADol [Ultram] 50 mg PO Q6H PRN #15 tab PRN Reason: Pain, Severe (8-10) Instructions: Upper Back Pain (DC), Lupus (DC) Print Language: ARMENIAN - POA Present On Arrival: None
[2018-08-02 21:31] LABS: BASO % 0.3 % (0.0-2.0); EOS # 0.5 K/uL (0.0-0.7); EOS % 4.7 % (0.0-4.0); HEMOGLOBIN 13.3 g/dL (12.0-16.0); LYMPH # 2.8 K/uL (1.0-4.3); LYMPH % 27.4 % (20.0-40.0); MEAN CELL VOLUME 86.3 fl (81.0-99.0); MEAN CORPUSCULAR HEMOGLOBIN 28.6 pg (27.0-31.0); MEAN CORPUSCULAR HGB CONC 33.2 g/dL (33.0-37.0); MONO # 0.7 K/uL (0.0-0.8); MONO % 7.2 % (0.0-10.0); NEUT # 6.2 K/uL (1.8-7.0); NEUT % 60.4 % (50.0-75.0); NRBC % 0.1 % (0.0-0.0); RBC 4.65 Mil/uL (3.80-5.20); RED CELL DISTRIBUTION WIDTH 16.6 % (11.5-14.5); WHITE BLOOD COUNT 10.2 K/uL (4.8-10.8)
[2018-08-02 21:33] LABS: SQUAMOUS EPITHIAL 18 /hpf (0-5); URINE BACTERIA OCC (<OCC); URINE BILIRUBIN NEGATIVE (NEGATIVE); URINE CLARITY CLOUDY (Clear); URINE COLOR YELLOW (YELLOW); URINE GLUCOSE (UA) NEG (NEGATIVE); URINE LEUKOCYTE ESTERASE TRACE Leu/uL (Negative); URINE PROTEIN 30 mg/dL (NEGATIVE); URINE UROBILINOGEN 0.2-1.0 mg/dL (0.2-1.0)
[2018-08-02 21:34] LABS: URINE BLOOD TRACE (NEGATIVE)
[2018-08-02 21:48] LABS: ALB/GLOB RATIO 1.2 (1.0-2.1); ALBUMIN 4.1 g/dL (3.5-5.0); ALT/SGPT 29 U/L (9-52); AST/SGOT 19 U/L (14-36); BLOOD UREA NITROGEN 19 mg/dl (7-17); CALCIUM 9.3 mg/dL (8.4-10.2); GFR NON-AFRICAN AMERICAN > 60
== END 2018-08-02 22:40 | disposition home or self-care (01) ==
LOC: H.ER 18:37
DX: M54.9 Dorsalgia, unspecified (principal); M32.9 Systemic lupus erythematosus, unspecified